=== PATIENT | female | born 1995 ===

== ENCOUNTER 2022-09-14 10:15 | Inpatient (IN) | payer OTHER ==
[~2022-09-14] VITALS: Ht 162.6 cm; Wt 75.7 kg
[2022-09-14] VITALS (60 sets, daily range): BP systolic 77–138; BP diastolic 48–80
[2022-09-14] MEDS ORDERED: VALT1TAB PO (10:41)
[2022-09-14] MEDS ORDERED: PRENTAB9 PO (10:41)
[2022-09-14] MEDS ORDERED: LIDOCAINE 1% MDV 20ML VIAL INFIL PRN (11:40)
[2022-09-14] MEDS ORDERED: TRANEXAMIC ACID INJection 1,000 MG in NS 100 ML IV PRN (11:40)
[2022-09-14] MEDS ORDERED: METHYLERGONOVINE MALEATE 0.2MG/ML 1ML VIAL IM PRN (11:40)
[2022-09-14] MEDS ORDERED: OXYTOCIN DRIP 30 UNITS in IV 1 EA IV PRN ×4 (11:40)
[2022-09-14] MEDS ORDERED: EPIDURAL/PCA KEYS XX PRN (11:55)
[2022-09-14] MEDS ORDERED: ONDANSETRON 4MG 2ML VIAL IV PRN (11:55)
[2022-09-14] MEDS ORDERED: diphenhydrAMINE 50MG/ML VIAL IV PRN (11:55)
[2022-09-14] MEDS ORDERED: NALOXONE INJ 0.4MG/1ML VIAL IV PRN (11:55)
[2022-09-14] MEDS ORDERED: LR 500 ML IV PRN (11:55)
[2022-09-14 11:56] LABS: HEMATOCRIT 35.8 % (36.0-47.0); HEMOGLOBIN 12.1 g/dl (12.0-15.5); MEAN CORPUSCULAR HEMOGLOBIN 31.7 pg (27.0-33.0); MEAN CORPUSCULAR HGB CONC 33.8 g/dl (32.0-36.5); MEAN CORPUSCULAR VOLUME 93.7 fl (80.0-96.0); PLATELET COUNT, AUTOMATED 240 10^3/uL (150-450); RED BLOOD COUNT 3.82 10^6/uL (4.00-5.40); WHITE BLOOD COUNT 12.4 10^3/uL (4.0-10.0)
[2022-09-14] MEDS: FENTANYL/ROPIVACAINE/NACL BAG 100 ML EPIDURAL SCH (12:39)
[2022-09-14] MEDS: LR 1,000 ML IV SCH ×4 (12:40→22:13)
[2022-09-14] MEDS: ePHEDrine SULFATE 25 MG/5 ML(5MG/ML) SYRINGE IVP PRN ×3 (13:02→14:13)
[2022-09-14] MEDS ORDERED: OXYTOCIN DRIP 30 UNITS in IV 1 EA IV SCH (20:00)
[2022-09-15] VITALS (13 sets, daily range): BP systolic 101–136; BP diastolic 53–93; O2SAT 97–98
[2022-09-15] MEDS: FENTANYL/ROPIVACAINE/NACL BAG 100 ML EPIDURAL SCH (01:51)
[2022-09-15 03:42] LABS: CORD GAS ABE V -6.1; CORD GAS HCO3 V 18.5 MMOL/L; CORD GAS O2 SAT V 90.4 %; CORD GAS PCO2 V 34.7 mmHg; CORD GAS PH V 7.344 UNITS; CORD GAS PO2 V 47.5 mmHg; CORD GAS SBC V 19.4 MMOL/L; CORD GAS TCO2 V 19.5 MMOL/L
[2022-09-15 03:43] LABS: CORD GAS ABE A -4.3; CORD GAS HCO3 A 21.6 MMOL/L; CORD GAS O2 SAT A 80.9 %; CORD GAS PCO2 A 42.4 mmHg; CORD GAS PH A 7.324 UNITS; CORD GAS PO2 A 36.9 mmHg; CORD GAS SBC A 20.5 MMOL/L; CORD GAS TCO2 A 22.9 MMOL/L
[2022-09-15] MEDS ORDERED: RHOGAM 300MCG (1500IU) INJ IM SCH (04:15)
[2022-09-15] MEDS ORDERED: METOCLOPRAMIDE INJ 10MG/2ML VIAL IV PRN (04:15)
[2022-09-15] MEDS ORDERED: DIBUCAINE 1% OINTMENT 30GM TOP PRN (04:15)
[2022-09-15] MEDS ORDERED: METHYLERGONOVINE MALEATE 0.2MG/ML 1ML VIAL IM PRN (04:15)
[2022-09-15] MEDS ORDERED: ONDANSETRON 4MG 2ML VIAL IV PRN (04:15)
[2022-09-15] MEDS ORDERED: OXYTOCIN DRIP 30 UNITS in IV 1 EA IV SCH (04:15)
[2022-09-15] MEDS ORDERED: DOCUSATE SODIUM 100MG CAPSULE PO PRN (04:15)
[2022-09-15] MEDS: LR 1,000 ML IV SCH ×2 (04:15→12:15)
[2022-09-15] MEDS: ACETAMINOPHEN 500 MG TAB PO SCH ×4 (04:39→22:42)
[2022-09-15] MEDS: IBUPROFEN 800 MG TAB PO SCH ×3 (04:40→20:11)
[2022-09-15] MEDS: PRENATAL VITAMINS CHEWABLE TABLET PO SCH (08:11)
[2022-09-15] MEDS: valACYclovir HCL 500 MG TAB PO SCH ×2 (14:15→20:11)
[2022-09-16] MEDS: ACETAMINOPHEN 500 MG TAB PO SCH (05:44)
[2022-09-16] MEDS: IBUPROFEN 800 MG TAB PO SCH (05:44)
[2022-09-16 06:00] VITALS: BP 103/61; O2SAT 100
[2022-09-16 06:42] LABS: HEMATOCRIT 28.3 % (36.0-47.0); MEAN CORPUSCULAR HEMOGLOBIN 31.8 pg (27.0-33.0); MEAN CORPUSCULAR HGB CONC 33.2 g/dl (32.0-36.5); MEAN CORPUSCULAR VOLUME 95.6 fl (80.0-96.0); PLATELET COUNT, AUTOMATED 187 10^3/uL (150-450); RED BLOOD COUNT 2.96 10^6/uL (4.00-5.40); WHITE BLOOD COUNT 12.3 10^3/uL (4.0-10.0)
[2022-09-16 06:58] LABS: HEMOGLOBIN 9.4 g/dl (12.0-15.5)
[2022-09-16] MEDS: PRENATAL VITAMINS CHEWABLE TABLET PO SCH (08:16)
[2022-09-16] MEDS: valACYclovir HCL 500 MG TAB PO SCH (08:16)
[2022-09-17] MEDS ORDERED: MEASLES,MUMPS,RUBELLA VACCINE INJ (MMR-II) SC.IMMUN ONE (09:00)
== END 2022-09-16 11:35 | disposition home or self-care (01) | DRG 807 ==
LOC: M LDO 10:15 → M LDI 10:55 → M OBS 09-15 05:54
PROVIDERS: ADMIT Obstetrics & Gynecology; ATTEND Obstetrics & Gynecology
PROC: 10E0XZZ Delivery of Products of Conception, External Approach (ICD-10-PCS; principal; 2022-09-15)
PROC: 0KQM0ZZ Repair Perineum Muscle, Open Approach (ICD-10-PCS; 2022-09-15)
DX: O34.211 Maternal care for low transverse scar from previous cesarean delivery (principal); Z37.0 Single live birth; Z3A.39 39 weeks gestation of pregnancy; O69.82X0 Labor and delivery complicated by other cord entanglement, without compression, not applicable or unspecified; O70.1 Second degree perineal laceration during delivery